=== PATIENT | male | born 1975 | race Caucasian/White ===

== ENCOUNTER 2025-11-13 08:45 | Emergency (ER) | payer OTHER, SELFPAY ==
--- OUTSIDE RECORDS SUMMARY | 2025-11-13 08:49 | XMS_ITS | Clinical Summary ---
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 This disclosure is being madepursuant to the Care Everywhere program and may not contain all information available regarding this patient. Last updated 18.[facility] [employer] Allergies No known active allergies Medications * Be aware that medications may not be up to date on this document. Alwaysverify current medications with the patient. Cetirizine-Pseudoe phedrine (ZYRTEC-D PO) Active Family History Medical History Relation Name Comments Cancer - Breast Mother Relation Name Status Comments Mother Social History Tobacco Use Types Packs/Day Years Used Date Smoking Tobacco: Passive Smo ke Exposure - Never Smoker Sex and Gender Information Value Date Recorded Sex Assigned at Not on file Legal Sex Male 11:32 AM CDT Gender Identity Not on file Sexual Orientation Not on file Last Filed Vital Signs Vital Sign Reading Time Taken Comments Blood Pressure 132/86 03/30/2017 12:07 PM CDT Pulse 72 03/30/2017 12:07 PM CDT Temperature 36.9 C (98.5 F) 03/30/2017 12:07 PM CDT Respiratory Rate 16 03/30/2017 12:07 PM CDT Oxygen Saturation 97% 03/30/2017 12:07 PM CDT Inhaled Oxygen Concentration - - Weight 127 kg (280 lb) 03/30/2017 12:07 PM CDT Height 193 cm (6' 4) 03/30/2017 12:07 PM CDT Body Mass Index 34.08 03/30/2017 12:07 PM CDT Plan of Treatment Health Maintenance Due Date Last Done Comments COLOGUARD (AGES 45-75) - COL ON CA SCREENING 1977 COLON MONITORING 1977 COLONOSCOPY - COLON CA SCREENING 1977 CT COLONOGRAPHY - COLON CA SCREENING 1977 Colorectal Cancer Screening 1977 FIT - COLON CA SCREENING 1977 FLEX SIG - COLON CA SCREENING 1977 LIPID TESTING 1977 HIV SCREENING 1992 HEPATITIS C SCREENING 12/23/1995 DTAP/TDAP/TD VACCINES (1 - Tdap) 1996 HEPATITIS B VACCINE (1 of 3 - 19+ 3-dose series) 1996 DEPRESSION SCREENING 11/16/2024 COVID-19 VACCINE (1 - 2024-2 6 season) 2025 INFLUENZA VACCINE (#1) 2025 ZOSTER VACCINE (1 of 2) 2027 HIB VACCINE Aged Out No longer eligi ble based on patient's age to complete this topic HPV VACCINE Aged Out No longer eligi ble based on patient's age to complete this topic MENINGOCOCCAL (Group B) VACC INE SHARED DECISION-MAKING Aged Out No longer eligibl e based on patient's age to complete this topic MENINGOCOCCAL GROUPS A/C/Y/W VACCINE Aged Out No longer eligible b ased on patient's age to complete this topic PNEUMOCOCCAL VACCINE Aged Out No long er eligible based on patient's age to complete this topic 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
[2025-11-13 08:50] VITALS: BP 142/81; PULSE 83; RESP 16; TEMP 36.7; O2SAT 97
--- OUTSIDE RECORDS SUMMARY | 2025-11-13 08:50 | XMS_ITS | Clinical Summary ---
Author Organization [facility] [address] Address [address] [place] [id number] Care Team Providers Care Back Tender Pulp Drier Name Role Phone Kee Milan MD Primary Care Provider [phone] Allergies No known active allergies Medications cetirizine (ZyrTEC) 10 mg tablet Take 1 tablet (10 mg total) by mouth daily Active multivitamin with minerals tablet Take 1 tablet by mouth daily Active triamcinolone (NASACORT) 55 mcg nasal inhaler Administer 2 sprays into each nostril daily Active Active Problems Problem Noted Date Diagnosed Date Annual physical exam 10/04/2024 Immunizations Immunization Administration Dates Next Due DTP 06/18/1983, 0,09/28/1978,07/01,03/25/1978 Influenza, Quadrivalent, Lynette l Culture-based MDCK, Preservative Free, Antibiotic Free, Intramuscular 08/16/2022 Influenza, Quadrivalent, Spl it, Preservative Free, Intramuscular 08/14/2020 Influenza, Trivalent, Cell Culture-based MDCK, Preservative Free, Antibiotic Free, Intramuscular 08/02/2024 Influenza, Unspecified 08/02/2024,2022,08/16/2022(Defer red: Patient Refused),09/04/2021(Deferred: Patient Refused) MMR 01/12/1992 Moderna Sars-cov-2 Bivalent Vaccine 50 Mcg/0.5 mL (12+ YRS)-Blue/Mcdaniel 08/02/2024 OPV 06/18/1983, 0,09/28/1978,07/01,03/25/1978 Tdap 05/12/2014 Surgical History Surgery Date Site/Laterality Comments KNEE SURGERY Right KNEE ARTHROSCOPY W/ LATERAL RELEASE 1992 Family History Medical History Relation Name Comments No Known Problems Brother 1 No Known Problems Brother 2 No Known Problems Father Brain Aneurysm Mother Yohana Breast cancer Mother Yohana Cancer Mother Yohana Relation Name Status Comments Brother 1 Alive Brother 2 Alive Father Alive Mother Yohana Social History Tobacco Use Types Packs/Day Years Used Date Smoking Tobacco: Former Cigarettes Smokeless Tobacco: Never Tobacco Cessation:Counseling Given: Not Answered AUDIT-C Answer Date Recorded Q1: How often do you have a drink containing alcohol? Never 10/04/2024 Q2: How many drinks containi ng alcohol do you have on a typical day when you are drinking? Patient does not drink Q3: How often do you have si x or more drinks on one occasion? Never 10/04/2024 PHQ-2 Answer Date Recorded PHQ-2 Total Score (If total score is 3 or more points, staff should administer the PHQ-9) 0 10/04/2024 Sex and Gender Information Value Date Recorded Sex Assigned at Not on file Legal Sex Male 12:17 PM CDT Gender Identity Not on file Sexual Orientation Not on file Last Filed Vital Signs Vital Sign Reading Time Taken Comments Blood Pressure 126/80 10/04/2024 11:59 AM CUPOLA LINER HELPER Pulse 94 10/04/2024 11:59 AM CUPOLA LINER HELPER Temperature 37.2 C (98.9 F) 10/04/2024 11:59 AM CUPOLA LINER HELPER Respiratory Rate 16 06/17/2023 1:23 PM CDT Oxygen Saturation 97% 10/04/2024 11: 59 AM CUPOLA LINER HELPER Inhaled Oxygen Concentration - - Weight 119.9 kg (264 lb 4.8 oz) 024 11:59 AM CUPOLA LINER HELPER Height 193 cm (6' 4) 10/04/2024 11:59 AM CUPOLA LINER HELPER Body Mass Index 32.17 10/04/2024 11:59 AM CUPOLA LINER HELPER Plan of Treatment Health Maintenance Due Date Last Done Comments Hepatitis C Screening 1977 Hepatitis B Screening 1995 DTaP/Tdap/Td Vaccine (7 - Td or Tdap) 05/12/2024 05/12/2014, 06/18/1983, 04/12/1980, Additional history exists Covid-19 Vaccine ( season) 2025 08/02/2024, 08/02/2024, 08/16/2022, Additional history exists Influenza Vaccine (#1) 2025 , 08/02/2024, 08/16/2023, Additional history exists Depression Screening 10/04/2025 10/04/2024, 06/17/2023, 06/11/2022 Regular Well Visit/Exam 18-64 10/04/2025 10/04/2024, 06/17/2023, 06/11/2022 Colon Cancer Screening-DNA Stool 05/12/2026 05/12/2023 Pneumococcal vaccine <65 Aged Out No longer eligible based on patient's age to complete this topic Procedures Procedure Name Priority Date/Time Associated Diagnosis Comments STOOL DNA COLOGUARD Routine 05/12/2023 9:00 AM CDT Colon cancer screening from Last 3 Months or Most Recently Relevant to Health Maintenance Results * Stool DNA - Cologuard (05/12/2023 9:00 AM CDT) Stool DNA - Cologuard Negative Negative [employer] (CLIA #:[id number]) Comment: NEGATIVE TEST RESULT. A negative Cologuard result indicates a low likelihood that a colorectal cancer (CRC) or advanced adenoma (adenomatous polyps with more advanced pre-malignant features) is present. The chance that a person with a negative Cologuard test has a colorectal cancer is less than 1 in 1500 (negative predictive value >99.9%) or has an advanced adenoma is less than 5.3% (negative predictive value 94.7%). These data are based on a prospective cross-sectional study of 10,000 individuals at average risk for colorectal cancer who were screened with both Cologuard and colonoscopy. (Shagufta Little al, N Engl J Med 2014;370(14):9596-8145) The normal value (reference range) for this assay is negative. COLOGUARD RE-SCREENING RECOMMENDATION: Periodic colorectal cancer screening is an important part of preventive healthcare for asymptomatic individuals at average risk for colorectal cancer. Following a negative Cologuard result, the [place] Cancer Society and U.S. Multi-Society Task Force screening guidelines recommend a Cologuard re-screening interval of 3 years. References: [place] Cancer Society Guideline for Colorectal Cancer Screening: https://www.cancer.org/cancer/xgfmt-kqlfmd-lfvyvj/daotyqofw-fsdtojwkx-gzurhdj/ac s-rec ommendations.html.; Monico DK, Vannessa MONTAGUE, Abdulkadir PEREZ, Colorectal Cancer Screening: Recommendations for Physicians and Patients from the U.S. Multi-Society Task Force on Colorectal Cancer Screening , Am J Gastroenterology 2017; 112:6500-5418. TEST DESCRIPTION: Composite algorithmic analysis of stool DNA-biomarkers with hemoglobin immunoassay. Quantitative values of individual biomarkers are not reportable and are not associated with individual biomarker result reference ranges. Cologuard is intended for colorectal cancer screening of adults of either sex, 45 years or older, who are at average-risk for colorectal cancer (CRC). Cologuard has been approved for use by the U.S. FDA. The performance of Cologuard was established in a cross sectional study of average-risk adults aged 50-84. Cologuard performance in patients ages 45 to 49 years was estimated by sub-group analysis of near-age groups. Colonoscopies performed for a positive result may find as the most clinically significant lesion: colorectal cancer [4.0%], advanced adenoma (including sessile serrated polyps greater than or equal to 1cm diameter) [20%] or non- advanced adenoma [31%]; or no colorectal neoplasia [45%]. These estimates are derived from a prospective cross-sectional screening study of 10,000 individuals at average risk for colorectal cancer who were screened with both Cologuard and colonoscopy. (Shagufta Little al, N Engl J Med 2014;370(14):0383-5892.) Cologuard may produce a false negative or false positive result (no colorectal cancer or precancerous polyp present at colonoscopy follow up). A negative Cologuard test result does not guarantee the absence of CRC or advanced adenoma (pre-cancer). The current Cologuard screening interval is every 3 years. ([place] Cancer Society and U.S. Multi-Society Task Force). Cologuard performance data in a 10,000 patient pivotal study using colonoscopy as the reference method can be accessed at the following location: www.exactlabs.com/results. Additional description of the Cologuard test process, warnings and precautions can be found at www.cologuard.com. Stool 05/12/2023 9:00 AM CDT 05/13/2023 9:37 PM CDT Kee Milan MD LAB BODY FLUIDS AND STOOLS OR DERABLES Final Result [employer] (CLIA #:[id number]) [place] [address] from Last 3 Months or Most Recently Relevant to Health Maintenance Insurance Bill.[facility] [id number] [facility] [place] [address] [facility] CHO[facility] [id number] Care Teams Back Tender Pulp Drier Relationship Specialty Start Date End Date Kee Milan MD PCP - General Family Medicine 06/11/22
--- NOTE | 2025-11-13 09:30 | ED.WOUNDLAC ---
HPI - Wound/Laceration General Chief Complaint: Wound/Laceration Stated Complaint: Left 1st finger lac Time Seen by Provider: 11/13/25 09:00 Source: patient Mode of arrival: ambulatory Limitations: no limitations History of Present Illness HPI narrative: Patient is a 49-year-old male who presents the ED with report of a laceration to his left 2nd digit. Patient reports he was pushing trash down into the trash can when he cut his finger on a metal can lid. Sustained laceration to his L 2nd digit. Denies numbness. Denies any other injuries. Tetanus up-to-date. Related Data Home Medications ?Medication ?Instructions ?Recorded ?Confirmed ?Last Taken ?Type simvastatin 10 mg tablet 10 mg PO QPM 01/30/20 Unknown History Allergies Allergy/AdvReac Type Severity Reaction Status Date / Time No Known Allergies Allergy Verified 11/13/25 08:54 Review of Systems Review of Systems: All systems reviewed & are unremarkable except as noted in HPI. All systems reviewed & are unremarkable except as noted in HPI and below PMFSH Family History Family History Grandparent Carcinoma of colon Mother Family history of malignant neoplasm of breast in first degree relative, Onset Age: 53 Social History Social History Smoking status: Former smoker Smoking end date: 11/16/02 Exam Narrative: GENERAL: Well appearing, well-nourished, non-toxic, in no acute distress. HEAD: Normocephalic, atraumatic. RESPIRATORY: Airway patent, respirations nonlabored. CARDIOVASCULAR: Regular rate and rhythm. Radial pulses strong and intact MUSCULOSKELETAL: Moves all extremities. No gross deformities. SKIN: Warm, dry, normal color. 1.5cm laceration to medial surface of L 2nd digit extensor surface, mild active bleeding. Sensation/cap refill intact NEURO: A&O X3. Speech clear. Cranial nerves II-XII grossly intact. Steady gait. No ataxic movements. PSYCHIATRIC: Appropriate mood and affect. Normal interaction. Course Vital Signs Vital signs: Vital Signs Temperature 98.1 F 11/13/25 08:50 Pulse Rate 83 11/13/25 08:50 Respiratory Rate 16 11/13/25 08:50 Blood Pressure 142/81 H 12/29/25 08:50 Pulse Oximetry 97 11/13/25 08:50 Oxygen Delivery Room Air 11/13/25 08:50 Temperature 98.1 F 11/13/25 08:50 Pulse Rate 83 11/13/25 08:50 Respiratory Rate 16 11/13/25 08:50 Blood Pressure 142/81 H 11/13/25 08:50 Pulse Oximetry 97 11/13/25 08:50 Oxygen Delivery Room Air 11/13/25 08:50 Procedures Laceration Laceration 1: Date: 11/13/25 Time: 10:20 Site: hand Side (If applicable): left (2nd digit) Size (cm): 1.5 Description: linear Depth: simple, single layer Local Anesthetic: other anesthetic (digital nerve block) Pre-repair: wound explored and irrigated ====== Skin Level ====== Skin layer closed with: nylon Size (cm): 4-0 Number of sutures: 4 Technique: simple, interrupted ====== Subcutaneous Layer ====== ====== Muscle Layer ====== ====== Tendon Layer ====== Nerve Block Nerve Block 1: Nerve block date: 11/13/25 Nerve block time: 09:57 Time out performed: Yes Local Anesthetic: lidocaine 1% Amount of anesthesia used (mL): 5 Side: left Nerve Blocks: digital (2nd digit) Procedure Successful: Yes Patient Tolerated Procedure: well and no complications Complications: none MDM MDM Narrative Medical decision making narrative: Full range of motion of finger, laceration fairly superficial. No indication for imaging. Digital nerve block performed with adequate anesthesia. Laceration repaired without complications. Tetanus up-to-date. Given wound care instructions and reasons to return Differential Diagnosis Differential Diagnosis: Laceration, abrasion, fracture Medical Records I have reviewed the following patient records and this information was taken into consideration when formulating the assessment and plan.: previous labs, previous ER visits, previous hospitalizations and previous clinic visits Discharge Plan Discharge Clinical Impression: Laceration of left index finger Qualifiers: Encounter type: initial encounter Damage to nail status: without damage Foreign body presence: without foreign body Qualified Code(s): S61.211A - Laceration without foreign body of left index finger without damage to nail, initial encounter Patient Disposition: Home Condition: Stable Instructions: Antibiotic Form, Care For Your Stitches (ED), Laceration (ED) Additional Instructions: Return to the ED or visit an urgent care or your PCP for follow-up and wound check/suture removal in 10 to 14 days. Change bandage daily. Wash wound with simple soap and water, but do not scrub. Return to the ED if you experience uncontrolled bleeding, fever, chills, pus-like drainage, or redness/swelling/warmth surrounding the wound, as these could be signs of an infection. Patient Language: Djiboutian Prescriptions: No Action simvastatin 10 mg tablet 10 mg PO QPM Rx Instructions: take 1 tablet by oral route every day in the evening albuterol sulfate [ProAir HFA] 90 mcg/actuation HFA aerosol inhaler See Rx Instructions .ROUTE .COMPLEX Qty: 8.5 0RF Dose Instruction: INHALE 2 PUFFS BY MOUTH EVERY 4 TO 6 HOURS NEEDED Rx Instructions: INHALE 2 PUFFS BY MOUTH EVERY 4 TO 6 HOURS NEEDED needs follow-up for further refills Follow-up/Referrals: Brock Jhaveri MD [Physician, Family Practice] PHYSICIAN,MUSIC BOX MECHANIC [Primary Care Provider, Internal Medicine] Time of Disposition: 10:25
--- OUTSIDE RECORDS SUMMARY | 2025-11-13 09:54 | XMS_ITS | Clinical Summary ---
Author Organization [facility] Address [address] [place] [address] Care Team Providers Care Field Enumerator Name Role Phone Unavailable Primary Care Provider Unavailabl e Source Comments [facility],non-owned Affiliates and Associated Physician Practices is amultiple site organization consisting of ambulatory clinics and hospital sitesin [place], [place] and [place]. This disclosure is being madepursuant to the Care Everywhere program and may not contain all information available regarding this patient. Last updated 18.[facility] [employer] Allergies No known active allergies Medications * [...] age to complete this topic [place] [address] [facility] Advance Directives Documents on File Type Date Recorded Patient Conciliator Expl anation Adv Directive/Living Will/POA 03/30/2017
--- OUTSIDE RECORDS SUMMARY | 2025-11-13 09:54 | XMS_ITS | Clinical Summary ---
Author Organization [facility] [address] Address [address] [place] [id number] Care Team Providers Care Junior Administrative Assistant Name Role Phone Kee Milan MD Primary Care Provider [phone] Allergies No known active allergies Medications cetirizine [...] Comments Blood Pressure 126/80 10/04/2024 11:59 AM SUPPORT CLERK Pulse 94 10/04/2024 11:59 AM SUPPORT CLERK Temperature 37.2 C (98.9 F) 10/04/2024 11:59 AM SUPPORT CLERK Respiratory Rate 16 06/17/2023 1:23 PM CDT Oxygen Saturation 97% 10/04/2024 11: 59 AM SUPPORT CLERK Inhaled Oxygen Concentration - - Weight 119.9 kg (264 lb 4.8 oz) 024 11:59 AM SUPPORT CLERK Height 193 cm (6' 4) 10/04/2024 11:59 AM SUPPORT CLERK Body Mass Index 32.17 10/04/2024 11:59 AM SUPPORT CLERK Plan of Treatment Health Maintenance Due Date [...] CDT) Stool DNA - Cologuard Negative Negative [employer] (CLIA #:[id number]) Comment: NEGATIVE TEST RESULT. A negative Cologuard [...] (Shagufta Little al, N Engl J Med 2014;370(14):9131-8198) The normal value (reference range) for this assay is negative. COLOGUARD RE-SCREENING RECOMMENDATION: Periodic colorectal cancer screening is an important part of preventive healthcare for asymptomatic individuals at average risk for colorectal cancer. Following a negative Cologuard result, the [place] Cancer Society and U.S. Multi-Society Task Force screening guidelines recommend a Cologuard re-screening interval of 3 years. References: [place] Cancer [employer] Guideline for Colorectal Cancer Screening: https://www.cancer.org/cancer/nsbhl-vxqqpf-rjwirq/bmsnoklex-zvvzoejjj-kjfwpwp/ac s-rec ommendations.html.; Monico DK, Vannessa MONTAGUE, Abdulkadir PEREZ, Colorectal Cancer Screening: Recommendations for Physicians and Patients from the U.S. Multi-Society Task Force on Colorectal Cancer Screening , Am J Gastroenterology 2017; 112:4530-6316. TEST DESCRIPTION: Composite algorithmic analysis of stool [...] (Shagufta Little al, N Engl J Med 2014;370(14):4201-9685.) Cologuard may produce a false negative or false positive result (no colorectal cancer or precancerous polyp present at colonoscopy follow up). A negative Cologuard test result does not guarantee the absence of CRC or advanced adenoma (pre-cancer). The current Cologuard screening interval is every 3 years. ([place] Cancer Society and U.S. Multi-Society Task Force). [...] FLUIDS AND STOOLS OR DERABLES Final Result [employer] (CLIA #:[id number]) [place] [address] from Last 3 Months or Most Recently Relevant to Health Maintenance Insurance [facility] [employer] Address: [address] [place] [address] [facility] [id number] [facility] CHOICE PLUS [facility] HMO/PPO Address: [address] [address] [place] [address] [place] [address] [facility] CHOICE [facility]US [facility] HMO/PPO Address: [address] [address] [place] [address] [facility] [id number] Care Teams Junior Administrative Assistant Relationship Specialty Start Date End Date Kee Milan MD PCP - General Family Medicine 06/11/22
== END 2025-11-13 10:31 | disposition home or self-care (01) ==
LOC: ANHED 09:37
PROVIDERS: Emergency Provider Physician Assistant
DX: S61.211A Laceration without foreign body of left index finger without damage to nail, initial encounter (principal); Z87.891 Personal history of nicotine dependence; W26.8XXA Contact with other sharp object(s), not elsewhere classified, initial encounter
CPT/HCPCS: 12001; 99282